=== PATIENT | male | born 1990 | race Caucasian/White ===

== ENCOUNTER 2022-10-20 08:39 | Outpatient (CLI) | payer OTHER | END 2022-10-20 08:40 | disposition home or self-care (01) | LOC: CSHMRI 08:39 | PROVIDERS: ATTEND Nurse Practitioner Family | DX: S89.91XA Unspecified injury of right lower leg, initial encounter (principal); S83.211A Bucket-handle tear of medial meniscus, current injury, right knee, initial encounter; M25.461 Effusion, right knee ==